=== PATIENT | female | born 1985 | race Caucasian/White ===

== ENCOUNTER 2024-11-02 12:23 | Outpatient (CLI) | payer BC | END 2024-11-02 12:24 | disposition home or self-care (01) | LOC: CSHMAMMO 12:23 | PROVIDERS: ATTEND Obstetrics & Gynecology | DX: Z12.31 Encounter for screening mammogram for malignant neoplasm of breast (principal); Z98.82 Breast implant status | CPT/HCPCS: 77063; 77067 ==